=== PATIENT | male | born 1980 | race Caucasian/White ===

== ENCOUNTER 2023-03-14 11:01 | Outpatient (CLI) | payer MEDICARE, OTHER, SELFPAY | END 2023-03-14 11:02 | disposition home or self-care (01) | LOC: LONREF 11:03 | PROVIDERS: PCP Family Medicine; Visit Provider Family Medicine | DX: E78.5 Hyperlipidemia, unspecified (principal); E13.9 Other specified diabetes mellitus without complications | CPT/HCPCS: 80061 ==

== ENCOUNTER 2023-11-07 11:12 | Outpatient (CLI) | payer MEDICARE, OTHER, SELFPAY | END 2023-11-07 11:13 | disposition home or self-care (01) | PROVIDERS: PCP Family Medicine; Visit Provider Family Medicine | DX: E13.9 Other specified diabetes mellitus without complications (principal); E78.5 Hyperlipidemia, unspecified | CPT/HCPCS: 80048 ==

== ENCOUNTER 2024-11-19 14:57 | Outpatient (CLI) | payer MEDICARE, OTHER, SELFPAY | END 2024-11-19 14:58 | disposition home or self-care (01) | PROVIDERS: PCP Family Medicine; Visit Provider Family Medicine | DX: E78.2 Mixed hyperlipidemia (principal); E13.9 Other specified diabetes mellitus without complications | CPT/HCPCS: 80048; 80061 ==